=== PATIENT | female | born 1960 | race Two or more races ===

== ENCOUNTER 2020-03-05 15:53 | Emergency (ER) | payer OTHER ==
[~2020-03-05] VITALS: Ht 160 cm; Wt 74.8 kg
[2020-03-05] MEDS ORDERED: LIDOCAINE 1% HCL (LOCAL ANESTH.) INJ 20ML MDV IJ ONE (16:30)
== END 2020-03-05 16:45 | disposition home or self-care (01) ==
LOC: ER 15:53 → EEVIPCON 15:53 → ER 16:45
DX: S01.21XA Laceration without foreign body of nose, initial encounter (principal); W22.8XXA Striking against or struck by other objects, initial encounter; Y93.89 Activity, other specified; Y92.89 Other specified places as the place of occurrence of the external cause; Y99.8 Other external cause status
CPT/HCPCS: 12011; 99283; J2001